=== PATIENT | female | born 1935 | race Caucasian/White ===

== ENCOUNTER 2017-02-26 12:04 | Emergency (ER) | payer MEDICARE ==
[2017-02-26 12:11] VITALS: BP 127/69
--- NOTE | 2017-02-26 12:27 | UC ---
Skin Complaint HPI - HPI Summary HPI Summary: 82 y/o female with h/o red, itchy/ burning on L flank x several days/ ? 2 weeks. Patient states started as bump on back, has spread. no new meds/ soaps / foods. No prior occurances, neighbor advised to take claritin, no relief. h/o shingles shot several years ago, no case of shingles. no fever, chills, no new symptoms. - History of Current Complaint Chief Complaint: UCSkin Time Seen by Provider: 02/26/17 12:12 Stated Complaint: RASH Hx Obtained From: Patient ?: No Onset/Duration: Gradual Onset, Lasting Days Onset Severity: Mild Current Severity: Mild - Allergy/Home Medications Allergies/Adverse Reactions: Allergies Allergy/AdvReac Type Severity Reaction Status Date / Time No Known Allergies Allergy Verified 02/26/17 12:11 Home Medications: Home Medications Cholecalciferol [Vitamin D] 1,000 unit PO DAILY 02/26/17 [History Confirmed 03/07] Cyanocobalamin [B12] 1,000 mcg PO DAILY 02/26/17 [History Confirmed 02/26/17] Hydrochlorothiazide TAB* [Hydrodiuril TAB*] 25 mg PO DAILY 02/26/17 [History Confirmed 02/26/17] Review of Systems Constitutional: Negative Skin: Rash Musculoskeletal: Negative Neurological: Negative Psychological: Negative All Other Systems Reviewed And Are Negative: Yes PMH/Surg Hx/FS Hx/Imm Hx Previously Healthy: Yes - no prior skin injuries/ complaints - Surgical History Surgical History: Yes Surgery Procedure, Year, and Place: bilateral knee replacement. hysterectomy - Social History Alcohol Use: Rare Substance Use Type: None Smoking Status (MU): Former Smoker Type: Cigarettes When Did the Patient Quit Smoking/Using Tobacco: years Physical Exam Triage Information Reviewed: Yes Appearance: Well-Appearing, No Pain Distress, Well-Nourished Vital Signs: Initial Vital Signs Temp 98 F 02/26/17 12:06 Pulse 95 02/26/17 12:06 Resp 16 02/26/17 12:06 BP 127/69 02/26/17 12:06 Pulse Ox 98 02/26/17 12:06 Vital Signs Reviewed: Yes Neurological Exam: Normal Psychological Exam: Normal Skin: Positive: rashes - warm, erythematous diffuse rash over L flank extending from axillary to spine, approximately 10cm diameter. near middle small, punctate lesion seen with violacious center seen. non-tender to palpation. Course/Dx - Course Course Of Treatment: cellulitis likely from insect bite with lesion in center. begin abx, follow up with PCP on Saturday, patient has appointment - Differential Diagnoses - Skin Complaint Differential Diagnoses: Cellulitis, Eczema, Lymphangitis, Urticaria, Viral Exanthem - Diagnoses Provider Diagnoses: cellulitis L flank Discharge - Discharge Plan Condition: Good Disposition: HOME Prescriptions: Cephalexin CAP* [Keflex CAP*] 500 mg PO TID #30 cap Patient Education Materials: Cellulitis (ED) Additional Instructions: - Follow up with Primary physician Saturday for re-evaluation - ANtibiotics as directed - Return to ER/ UC with fever, chills, increased pain/ swelling
== END 2017-02-26 12:37 | disposition home or self-care (01) ==
LOC: UCCORT 12:04
DX: L03.312 Cellulitis of back [any part except buttock and flank] (principal); Z96.653 Presence of artificial knee joint, bilateral; Z90.710 Acquired absence of both cervix and uterus; Z87.891 Personal history of nicotine dependence
CPT/HCPCS: 99212; G0463

== ENCOUNTER 2018-01-06 11:04 | Emergency (ER) | payer MEDICARE ==
[2018-01-06 11:29] VITALS: BP 134/76
--- NOTE | 2018-01-06 11:52 | UC ---
Dizzy HPI HPI Summary: 82 yo female with three week hx of dizziness exacerbated by change in position no true vertigo has had intermittent occipital KLINE which she has attributed to stress She has not had HAs like this before they last hours and resolve spontaneously currently no KLINE no cp/sob/n/v/d no f/c no URI or UTI symptoms no anorexia no depression has had much stress at home dying of [place] son depressed and agorophobic HAD NORMAL CBC AND CMP LAST WEEK MECLIZINE NOT HELPING - History Of Current Complaint Chief Complaint: UCDizziness Stated Complaint: DIZZY LIGHT HEADED Time Seen by Provider: 01/06/18 11:22 Hx Obtained From: Patient Onset/Duration: Gradual Onset, Lasting Weeks Timing: Hours Severity Initially: Moderate Severity Currently: None Pain Intensity: 0 Pain Scale Used: 0-10 Numeric Character: Lightheaded, Dizzy Aggravating Factor(s): Position Change Alleviating Factor(s): Nothing Associated Signs And Symptoms: Positive: Unsteady Gait - initially - Allergies/Home Medications Allergies/Adverse Reactions: Allergies Allergy/AdvReac Type Severity Reaction Status Date / Time No Known Allergies Allergy Verified 01/06/18 11:32 Home Medications: Home Medications Areds 1 tab PO DAILY 01/06/18 [History Confirmed 01/06/18] Escitalopram Oxalate [Lexapro 10 mg] 10 mg PO DAILY 01/06/18 [History Confirmed 01/06/18] Meclizine TAB* [Antivert 12.5 TAB*] 25 mg PO TID PRN 01/06/18 [History Confirmed 01/06/18] PMH/Surg Hx/FS Hx/Imm Hx Previously Healthy: Yes Cardiovascular History: Hypertension - Surgical History Surgical History: Yes Surgery Procedure, Year, and Place: bilateral knee replacement. hysterectomy - Family History Known Family History: Positive: Cardiac Disease, Hypertension - Social History Alcohol Use: Rare Substance Use Type: None Smoking Status (MU): Former Smoker Type: Cigarettes When Did the Patient Quit Smoking/Using Tobacco: years Review of Systems Constitutional: Negative Skin: Negative Eyes: Negative ENT: Negative Respiratory: Negative Cardiovascular: Negative Gastrointestinal: Negative Genitourinary: Negative Motor: Negative Neurovascular: Negative Musculoskeletal: Negative Neurological: Headache - occipital/intermittent x 3 weeks Psychological: Negative Is Patient Immunocompromised?: No All Other Systems Reviewed And Are Negative: Yes Physical Exam Triage Information Reviewed: Yes Appearance: Well-Appearing, No Pain Distress, Well-Nourished Vital Signs: Initial Vital Signs Temp 98.5 F 01/06/18 11:18 Pulse 78 01/06/18 11:18 Resp 16 01/06/18 11:18 BP 134/76 01/06/18 11:18 Pulse Ox 99 01/06/18 11:18 Eyes: Positive: Conjunctiva Clear ENT: Positive: Hearing grossly normal Neck: Positive: Nontender, No Lymphadenopathy Respiratory Exam: Normal Respiratory: Positive: Lungs clear, Normal breath sounds, No respiratory distress Cardiovascular: Positive: RRR, No Murmur, Pulses Normal Musculoskeletal: Positive: ROM Intact, No Edema Psychological Exam: Normal Skin Exam: Normal Diagnostics - Radiology No standard instances Xray Interpretation: No Acute Changes - CT brain Radiology Interpretation Completed By: Radiologist Dizzy Course/Dx - Differential Dx/Diagnosis Provider Diagnoses: dizziness of uncertain cause. headache. anxiety Discharge - Sign-Out/Discharge Documenting (check all that apply): Discharge/Admit/Transfer - Discharge Plan Condition: Stable Disposition: HOME Patient Education Materials: Dizziness (ED) Referrals: Loreto Mckoy [Primary Care Provider] - 1 Week Additional Instructions: I am unsure of the cause of your symptoms your EKG and CT of the brain were normal recheck for new or worsening symptoms I suggest you get in to see your provider sometime this week - Billing Disposition and Condition Condition: STABLE Disposition: Home
--- NOTE | 2018-01-06 12:35 | RAD ---
HISTORY: occipital KLINE and dizziness COMPARISONS: None TECHNIQUE: Multiple contiguous axial CT scans were obtained of the head without intravenous contrast. FINDINGS: HEMORRHAGE/INFARCT: There is no hemorrhage or acute infarct. MASSES/SHIFT: There is no mass or shift. EXTRA-AXIAL SPACES: There are no extra-axial fluid collections. SULCI AND VENTRICLES: The sulci and ventricles are normal in size and position for the patient's stated age. CEREBRUM: There are no focal parenchymal abnormalities. BRAINSTEM: There are no focal parenchymal abnormalities. CEREBELLUM: There are no focal parenchymal abnormalities. VESSELS: There is calcification of the cavernous segments of the internal carotid arteries bilaterally. PARANASAL SINUSES: The paranasal sinuses are clear. ORBITS: The orbits are unremarkable. BONES AND SOFT TISSUE: No bone or soft tissue abnormalities are noted. OTHER: None IMPRESSION: NO ACUTE INTRACRANIAL PATHOLOGY.
== END 2018-01-06 13:18 | disposition home or self-care (01) ==
LOC: UCCORT 11:04
DX: R42 Dizziness and giddiness (principal); R51 Headache; F41.9 Anxiety disorder, unspecified; I10 Essential (primary) hypertension; Z87.891 Personal history of nicotine dependence
CPT/HCPCS: 70450; 93005; 99211; G0463